=== PATIENT | female | born 1990 | race Caucasian/White ===

== ENCOUNTER 2022-07-23 10:13 | Outpatient (CLI) | payer OTHER, SELFPAY ==
[2022-07-23 13:48] LABS: Anion Gap 6 mmol/L (8-16); Blood Urea Nitrogen 10 mg/dL (7-17); Calcium 9.2 mg/dL (8.4-10.2); Carbon Dioxide 29 mmol/L (22-30); Chloride 107 mmol/L (98-107); Estimated Glomerular Filt Rate > 60; Glucose 93 mg/dL (65-110); Potassium 4.1 mmol/L (3.4-5.0); Sodium 142 mmol/L (137-145)
[2022-07-23 14:07] LABS: Free T4 Free Thyroxine 1.04 ng/mL (0.78-2.19)
[2022-07-26 04:57] LABS: Prolactin 5.7 ng/mL (***)
== END 2022-07-23 10:14 | disposition home or self-care (01) ==
LOC: ANHWCLAB 10:15
PROVIDERS: PCP Nurse Practitioner Family; Visit Provider Internal Medicine Endocrinology, Diabetes & Metabolism
DX: N64.52 Nipple discharge (principal); L68.0 Hirsutism; E06.3 Autoimmune thyroiditis; E03.8 Other specified hypothyroidism
CPT/HCPCS: 36415; 80048; 83498; 84146; 84439; 84443

== ENCOUNTER 2023-04-14 14:57 | Outpatient (CLI) | payer OTHER, SELFPAY ==
[2023-04-14 20:49] LABS: Free T4 Free Thyroxine 1.27 ng/mL (0.78-2.19)
== END 2023-04-14 14:58 | disposition home or self-care (01) ==
LOC: ANHWCLAB 14:58
PROVIDERS: PCP Nurse Practitioner Family; Visit Provider Internal Medicine Endocrinology, Diabetes & Metabolism
DX: E03.8 Other specified hypothyroidism (principal); E06.3 Autoimmune thyroiditis
CPT/HCPCS: 36415; 84439; 84443